=== PATIENT | female | born 1990 | race Hispanic/Latino ===

== ENCOUNTER 2018-10-27 16:57 | Inpatient (IN) | payer MEDICAID, OTHER ==
[~2018-10-27] VITALS: Ht 157.5 cm; Wt 71.2 kg
[2018-10-27] MEDS ORDERED: LACTATED RINGERS 1000ML 1,000 ML IV PRN (18:27)
[2018-10-27 19:02] LABS: HEMATOCRIT 35.8 % (36-48); MEAN CORPUSCULAR HEMOGLOBIN 27.4 pg (27.0-33.0); MEAN CORPUSCULAR HGB CONC 32.9 g/dL (32.0-36.0); MEAN CORPUSCULAR VOLUME 83.4 fL (79-99); NUCLEATED RED BLOOD CELLS 0.1 % (0.0-0.19); PLATELET COUNT (AUTO) 257 K/uL (130-400); RED CELL DISTRIBUTION WIDTH 14.5 % (11.0-15.5); WHITE BLOOD COUNT (AUTO) 10.1 K/uL (4.8-10.8)
[2018-10-27 19:10] LABS: BILIRUBIN,URINE Negative (NEGATIVE); COLOR,URINE Yellow (YELLOW); GLUCOSE, URINE (UA) Negative (NEGATIVE); KETONES,URINE Negative (NEGATIVE); LEUKOCYTE ESTERASE ,URINE Negative (NEGATIVE); NITRATE,URINE Negative (NEGATIVE); OCCULT BLOOD,URINE Negative (NEGATIVE); PROTEIN,URINE Negative (NEGATIVE)
[2018-10-27 19:11] LABS: APPEARANCE,URINE CLEAR (CLEAR)
[2018-10-27] MEDS ORDERED: OXYTOCIN-LR 20 UNITS/1000 ML 1,000 ML IV SCH (19:15)
[2018-10-27 20:00] VITALS: BP 116/72
[2018-10-28] MEDS ORDERED: OXYTOCIN 10 USP UNITS/ML 20 UNIT in LACTATED RINGERS 1000ML 1,000 ML IV SCH (03:00)
[2018-10-28] MEDS ORDERED: PROMETHAZINE HCL 25 MG/ML 1ML AMPULE IM ONE (04:24)
[2018-10-28] MEDS ORDERED: MEPERIDINE-PF 50 MG/ML SYG ONE (04:25)
[2018-10-28] MEDS ORDERED: MEPERIDINE-PF 50 MG/ML SYG IVP ONE (04:30)
[2018-10-28] MEDS ORDERED: LIDOCAINE HCL 1% 20 ML VIAL ONE (05:50)
[2018-10-28] MEDS ORDERED: MEASLES/MUMPS/RUBELLA VACCINE, LIVE 0.5 ML/VIAL SQ PRN (07:30)
[2018-10-28] MEDS ORDERED: DIPH,PERTUSS(ACELL),TET VAC/PF 0.5 ML VIAL IM PRN (07:30)
[2018-10-28] MEDS ORDERED: BENZOCAINE/LANOLIN/ALOE VERA 60 ML AEROSOL TP PRN (07:30)
[2018-10-28] MEDS ORDERED: LANOLIN 30GM OINTMENT TP PRN (07:30)
[2018-10-28] MEDS ORDERED: WITCH HAZEL 1 PAD TP PRN (07:30)
[2018-10-28 08:09] LABS: RAPID PLASMA REAGIN NONREACTIVE (NONREACTIVE)
[2018-10-28 08:54] VITALS: BP 120/72
[2018-10-28] MEDS ORDERED: PNV1TABL17 PO (09:09)
[2018-10-28] MEDS: DOCUSATE SODIUM 100 MG CAP PO SCH ×2 (09:22→21:20)
[2018-10-28 11:32] VITALS: BP 126/72
[2018-10-28] MEDS: ACETAMINOPHEN 325 MG TAB PO PRN ×2 (12:23→20:21)
[2018-10-28 15:13] VITALS: BP 102/69
[2018-10-28] MEDS: IBUPROFEN 800 MG TAB PO PRN ×2 (15:40→23:23)
[2018-10-28 20:09] VITALS: BP 113/62
--- NOTE | 2018-10-28 23:25 | NUR ---
pt resting in bed, semi-granado's position. baby on mother's chest. pt back from shower, was able to tolerate shower well. call light within reach. will continue to monitor pain Addendum: 10/28/18 at 8616 by WILDER NG RN RN Amended: Links added.
--- NOTE | 2018-10-28 23:26 | NUR ---
sitz bath instruction provided by demonstration. pt appeared to understand well and will use it @ this time then shower afterward. towels, gown, socks and new OB underwear provided to change into. pt's spouse @ bedside for support and to assist with baby. Addendum: 10/28/18 at 2329 by WILDER NG RN RN late entry for 10/28/18 @ 0 Addendum: 10/28/18 at 2329 by WILDER NG RN RN Amended: Links added.
[2018-10-28 23:47] VITALS: BP 114/66
[2018-10-29 03:46] VITALS: BP 121/74
[2018-10-29 04:10] LABS: HEMATOCRIT 32.8 % (36-48); MEAN CORPUSCULAR HEMOGLOBIN 27.1 pg (27.0-33.0); MEAN CORPUSCULAR HGB CONC 32.5 g/dL (32.0-36.0); MEAN CORPUSCULAR VOLUME 83.3 fL (79-99); NUCLEATED RED BLOOD CELLS 0.1 % (0.0-0.19); PLATELET COUNT (AUTO) 217 K/uL (130-400); RED BLOOD CELL COUNT(AUTO) 3.94 MIL/uL (4.00-5.50); RED CELL DISTRIBUTION WIDTH 14.6 % (11.0-15.5); WHITE BLOOD COUNT (AUTO) 11.2 K/uL (4.8-10.8)
[2018-10-29] MEDS: PROMETHAZINE HCL 25 MG/ML 1ML AMPULE IM SCH ×2 (04:30→04:40)
[2018-10-29 07:19] VITALS: BP 121/79
[2018-10-29] MEDS: IBUPROFEN 800 MG TAB PO PRN ×2 (07:23→15:40)
[2018-10-29 08:21] LABS: HEPATITIS Bs ANTIGEN SCREEN P Negative (Negative)
[2018-10-29] MEDS: DOCUSATE SODIUM 100 MG CAP PO SCH ×2 (08:57→21:20)
[2018-10-29 12:15] VITALS: BP 120/82
[2018-10-29 15:23] VITALS: BP 144/78
[2018-10-29 19:47] VITALS: BP 128/87
[2018-10-30] VITALS: BP 126/73
[2018-10-30 03:26] VITALS: BP 118/67
[2018-10-30] MEDS: IBUPROFEN 800 MG TAB PO PRN (03:26)
[2018-10-30 07:58] VITALS: BP 112/65
[2018-10-30] MEDS: DOCUSATE SODIUM 100 MG CAP PO SCH (08:56)
[2018-10-30] MEDS: ACETAMINOPHEN 325 MG TAB PO PRN (08:57)
[2018-10-30 11:19] VITALS: BP 136/80
--- NOTE | 2018-10-30 12:40 | NUR ---
DISCHARGE PATIENT LEFT UNIT VIA WHEELCHAIR WITH BELONGINGS IN HAND. BABY TO STAY IN NURSERY FOR OBSERVATION. PERSONAL VEHICLE USED FOR TRANSPORTATION. NO COMPLAINTS OR CONCERNS ADDRESSED FROM PATIENT ON DISCHARGE.
== END 2018-10-30 12:40 | disposition home or self-care (01) | DRG 807 ==
LOC: LDH 16:57 → OBSVTOIN 18:27 → WSH 10-28 08:50
PROVIDERS: ADMIT Obstetrics & Gynecology; ATTEND Obstetrics & Gynecology
PROC: 10E0XZZ Delivery of Products of Conception, External Approach (ICD-10-PCS; principal; 2018-10-28)
PROC: 3E033VJ Introduction of Other Hormone into Peripheral Vein, Percutaneous Approach (ICD-10-PCS; 2018-10-28)
PROC: 0HQ9XZZ Repair Perineum Skin, External Approach (ICD-10-PCS; 2018-10-28)
PROC: 3E0234Z Introduction of Serum, Toxoid and Vaccine into Muscle, Percutaneous Approach (ICD-10-PCS; 2018-10-28)
DX: O70.0 First degree perineal laceration during delivery (principal); Z37.0 Single live birth; Z3A.38 38 weeks gestation of pregnancy; Z23 Encounter for immunization
CPT/HCPCS: 36415; 81003; 85027; 86592; 86701; 86850; 86900; 86901; 87340; 87390; 90715; A4351; G0378; J2175; J2550; J2590; J7120